=== PATIENT | male | born 1960 | race Caucasian/White ===

== ENCOUNTER 2023-06-20 10:11 | Outpatient (CLI) | payer OTHER, SELFPAY ==
--- NOTE | 2023-06-20 | ECG_ITS ---
[facility] Test Date: 2023-06-20 Pat Name: Francesco Mayers Department: Room: Gender: Male [employer]: : 1960 Requested By: Viola Barr Order Number: [id number] Jerzy MD: Nicko Hernandez M.D. Interpretive Statements NAME OF STUDY: LEXISCAN SESTAMIBI STRESS TEST INDICATION: [Chest Pain] Procedure: At the baseline, the blood pressure was 148/93 mmHg with a heart rate of 48 bpm. The electrocardiogram showed sinus bradycardia with no significant ST-T wave changes. The Lexiscan was infused over a period of 20 seconds. A total of 0.4 mg of Lexiscan was infused. The stress phase was continued for a total of 5 minutes. Heart rate was at the end of stress phase was 67 bpm and a blood pressure was not recorded. The EKG at the peak infusion revealed normal sinus rhythm with no significant ST-T wave changes. Sestamibi was injected 20 seconds after the Lexiscan infusion. Blood pressure at the end of recovery phase was 145/80 mmHg with a heart rate of 59 bpm. Conclusion: 1. Normal EKG response to Lexiscan infusion 2. No Lexiscan induced chest pain or cardiac arrhythmia. 3. Normal blood pressure and heart rate response. 4. Sestamibi/sestamibi perfusion scan pending; see separate report. Electronically Signed On 07-03-2023 14:51:48 CDT by Nicko Hernandez M.D. [email or web address]
[2023-06-20 11:03] VITALS: BMI 29.1
--- NOTE | 2023-06-20 11:07 | NMCV_ITS ---
NM roque perf SPECT r/s* [id number] Francesco Mayers Age: 62 Gender: M : 1960 Exam Date: 06/20/2023 11:26 Ordering Phys: Viola Barr Technologist: SUSAN Lazo Exam Location: [facility] Indications: CHEST PAIN, SHORTNESS OF BREATH STRESS TEST Please see separate stress test report in [facility] for full findings IMAGE PROTOCOL Rest/Stress 1 Lexiscan Day Radiopharmaceutical Dose (mCi) Administration Site Administered by Rest: Tc-99m 10.8 IV SUSAN Acuna Sestamibi Stress:Tc-99m 32.7 IV SUSAN Acuna Sestamibi Rest: 20-Jun-2023 60 Discovery 630 Stress: 20-Jun-2023 30 Discovery 630 0.4mg Lexiscan. Images obtained in supine and prone position. SPECT RESULTS Technical Quality: Excellent Raw Data Analysis: Normal Image Corrections: No attenuation or motion correction applied Summed Stress Score: 5 Summed Rest Score: 2 Summed Difference Score: 4 PERFUSION FINDINGS There is medium to large sized area of reversible perfusion defect noted in inferior wall. This is consistent with medium to large sized area of ischemia in RCA territory. FUNCTIONAL RESULTS (calculated via Gated SPECT) Stress Image LV EF (%): 63 Stress EDV (mL):123 TID: 0.84 Stress ESV (mL):46 FUNCTIONAL FINDINGS: There is normal left ventricular systolic function. IMPRESSIONS 1. Abnormal myocardial perfusion imaging with medium to large sized area of ischemia seen in RCA territory. 2. LV systolic function is normal. Nicko Hernandez MD (Electronically Signed) Final Date: 23 June 2023 09:07 S
[2023-06-20] MEDS: regadenoson 0.4 Mg/5 ml Syringe IVP (12:33)
[2023-06-20 12:55] VITALS: BP 145/68; PULSE 75
== END 2023-06-20 10:12 | disposition home or self-care (01) ==
LOC: CDL 10:13
PROVIDERS: PCP Family Medicine; Visit Provider Registered Nurse
DX: R07.9 Chest pain, unspecified (principal); R06.09 Other forms of dyspnea; I25.9 Chronic ischemic heart disease, unspecified
CPT/HCPCS: 36415; 78452; 93017; 96374; A9500; J2785

== ENCOUNTER 2023-10-04 13:34 | Outpatient (CLI) | payer OTHER, SELFPAY ==
--- NOTE | 2023-10-04 13:36 | US_ITS ---
WS: [id number] TESTICULAR ULTRASOUND HISTORY: PAIN IN BOTH TESTICLES COMPARISON: None available. TECHNIQUE: Real-time and color Doppler imaging or utilized to perform a testicular ultrasound. Right testicle: 3.8 cm x 2.9 cm x 1.5 cm. Normal size and echogenicity. No mass or torsion. Normal color Doppler is present throughout. Systolic and diastolic velocities are both present. No significant hydrocele. Right epididymis: Normal epididymis with no increased vascularity. Minimal RIGHT varicocele. Left testicle: 3.8 cm x 3.0 cm x 2.0 cm. Normal size and echogenicity. No mass or torsion. Normal color Doppler is present throughout. Systolic and diastolic velocities are both present. No significant hydrocele. Left epididymis: Normal epididymis with no increased vascularity. IMPRESSION: 1. No testicular mass or torsion. 2. Very minimal RIGHT varicocele.
== END 2023-10-04 13:35 | disposition home or self-care (01) ==
LOC: RAD 13:34
PROVIDERS: PCP Family Medicine; Visit Provider Registered Nurse
DX: N50.811 Right testicular pain (principal); N50.812 Left testicular pain
CPT/HCPCS: 76870